=== PATIENT | female | born 1995 | race Caucasian/White ===

== ENCOUNTER 2019-07-26 21:12 | Emergency (ER) | payer MEDICAID ==
--- NOTE | 2019-07-26 23:01 | ER Document Report ---
ED General - General Chief Complaint: General Weakness Stated Complaint: POSSIBLE ALLERGIC REACTION/HOT FLASHES Time Seen by Provider: 07/26/19 22:52 TRAVEL OUTSIDE OF THE [place] IN LAST 30 DAYS: No - HPI Onset: Other - over the last week Onset/Duration: Gradual Quality of pain: Achy Severity: Moderate Pain Level: 3 Associated symptoms: Chills, Productive cough Exacerbated by: Coughing Relieved by: Denies Similar symptoms previously: No Recently seen / treated by doctor: No Notes: 24 year old female with no known PMH here for dizziness and feeling like she was going to pass out after using 3 doses of Delsym cough medication. The patient did not actually pass out but she felt like she might and she got nauseted. Of note, the patient has had a productive cough and chills for the last week. She says she used the cough medication due to her persistent cough. The patient says she has several family members at home who are sick as well with similar symptoms. - Related Data Allergies/Adverse Reactions: No Known Allergies Allergy (Verified 07/26/19 21:46) Home Medications: Completed Past Medical History - Social History Smoking Status: Former Smoker Chew tobacco use (# tins/day): No Frequency of alcohol use: None Drug Abuse: None Family History: Reviewed & Not Pertinent Patient has suicidal ideation: No Patient has homicidal ideation: No - Medical History Medical History: Negative - Past Medical History Cardiac Medical History: Reports: None Pulmonary Medical History: Reports: None EENT Medical History: Reports: None Neurological Medical History: Reports: None Endocrine Medical History: Reports: None Renal/ Medical History: Reports: None Malignancy Medical History: Reports: None GI Medical History: Reports: None Musculoskeletal Medical History: Reports None Skin Medical History: Reports None Psychiatric Medical History: Reports: None Traumatic Medical History: Reports: None Infectious Medical History: Reports: None Past Surgical History: Reports: None Review of Systems - Review of Systems Constitutional: Chills, Weakness EENT: Throat pain Cardiovascular: No symptoms reported, Chest pain - left sided Respiratory: Cough, Short of breath Gastrointestinal: No symptoms reported Genitourinary: No symptoms reported Female Genitourinary: No symptoms reported Musculoskeletal: No symptoms reported Skin: No symptoms reported Hematologic/Lymphatic: No symptoms reported Neurological/Psychological: Other - Dizziness like she was going to pass out Physical Exam - Vital signs Vitals: Temp Pulse Resp BP Pulse Ox 98.0 F 91 18 116/64 99 07/26/19 21:28 07/26/19 21:28 07/26/19 21:28 07/26/19 21:28 07/26/19 21:28 - Notes Notes: GENERAL: Well-appearing, well-nourished and in no acute distress. HEAD: Atraumatic, normocephalic. EYES: Pupils equal round and reactive to light, extraocular movements intact, sclera anicteric, conjunctiva are normal. ENT: Nares patent, oropharynx clear without exudates. Moist mucous membranes. NECK: Normal range of motion, supple without lymphadenopathy or JVD. LUNGS: Breath sounds clear to auscultation bilaterally and equal. No wheezes rales or rhonchi. HEART: Regular rate and rhythm without murmurs, rubs or gallops. ABDOMEN: Soft, nontender, normoactive bowel sounds. No guarding, no rebound. No masses appreciated. EXTREMITIES: Normal range of motion, no pitting or edema. No clubbing or cyanosis. NEUROLOGICAL: Cranial nerves II through XII grossly intact. Normal speech, normal gait. PSYCH: Normal mood, normal affect. SKIN: Warm, Dry, normal turgor, no rashes or lesions noted. Course - Re-evaluation Re-evalutation: 07/27/19 00:27 The patient is here because she felt dizzy and nauseated after taking cough medication. She looks well in the ER. The patient has had a cough for over a week. Chest Xray shows possible left sided lower lobe pneumonia and patient says she has some pain in this area. Will treat with Zpack. Patient also requested zofran for nausea. - Vital Signs Vital signs: Temp Pulse Resp BP Pulse Ox 98.0 F 91 18 116/64 99 07/26/19 21:47 07/26/19 21:47 07/26/19 21:47 07/26/19 21:47 07/26/19 21:47 Discharge - Discharge Clinical Impression: Medication adverse effect Qualifiers: Encounter type: initial encounter Qualified Code(s): T50.905A - Adverse effect of unspecified drugs, medicaments and biological substances, initial encounter Pneumonia Qualifiers: Pneumonia type: due to unspecified organism Laterality: left Lung location: lower lobe of lung Qualified Code(s): J18.9 - Pneumonia, unspecified organism Condition: Stable Disposition: HOME, SELF-CARE Instructions: Pneumonia ([facility]), Dizziness ([facility]) Additional Instructions: Drink plenty of fluids in the days to come. Take antibiotics (Azithromycin) as prescribed. Follow up with your primary care doctor if no better despite treatment. Prescriptions: Azithromycin 250 mg PO DAILY 4 Days #4 tablet Ondansetron [Zofran Odt 4 mg Tablet] 4 mg PO Q8H PRN #10 tab.rapdis PRN Reason:
--- NOTE | 2019-07-26 23:42 | RADIOLOGY REPORT (SQ) ---
EXAM DESCRIPTION: XR CHEST 2 VIEWS COMPLETED DATE/TME: 07/26/2019 23:01 CLINICAL HISTORY: 24 years, Female, cough for over a week with SOB COMPARISON: X-ray chest 01/19/2016 NUMBER OF VIEWS: TECHNIQUE: LIMITATIONS: None. FINDINGS: There may be hazy infiltrate at the left lung base, raising the possibility of pneumonia. This is a new finding, as compared with the prior study. The lungs are otherwise clear. No evidence of pleural effusion. The heart and mediastinum are unremarkable. Pulmonary vascularity appears normal. IMPRESSION: Possible left basilar pneumonia. copyright 2010 [facility] [employer]- All Rights Reserved
[2019-07-27] MEDS ORDERED: AZITHROMYCIN 250 MG TABLET PO ONE (00:15)
[2019-07-27 00:56] VITALS: BP 110/63
== END 2019-07-27 00:53 | disposition home or self-care (01) ==
LOC: ER 21:12
DX: J18.9 Pneumonia, unspecified organism (principal); R42 Dizziness and giddiness; R53.1 Weakness; R11.0 Nausea; T48.3X5A Adverse effect of antitussives, initial encounter; Y92.009 Unspecified place in unspecified non-institutional (private) residence as the place of occurrence of the external cause
CPT/HCPCS: 99284; 71046; Q0144